=== PATIENT | male | born 1955 | race Caucasian/White ===

== ENCOUNTER 2025-09-09 12:31 | HOS | payer OTHER, MEDICARE, SELFPAY ==
--- OUTSIDE RECORDS SUMMARY | 2021-12-07 07:55 | XMS_ITS | Continuity of Care Document ---
Author Organization [facility] Address [address] [place] [address] Phone Care Team Providers Care Mover Name Role Phone House FIREARMS INSPECTOR Mikayla ELLINGTON Unavailable Unavail able Allergies, Adverse Reactions, Alerts Substance Reaction Status Criticality No Known Allergies Active No Inform ation Medications Medication Instructions Dosage Effective Dates (start - stop) Status Comments meloxicam 7.5 mg tablet take 2 tablet by oral route every day 15 MG - Active duloxetine 20 mg capsule,delayed release take 1 capsule by oral route 2 times every day 20 MG - Active losartan 50 mg tablet take 1 tablet by oral route every day 50 MG - Active tamsulosin 0.4 mg capsule take 1 capsule by oral route every day 1/2 hour following the same meal each day 0.4 MG - Active Zyrtec 10 mg capsule - Active aspirin 81 mg chewable tablet chew 1 tablet by oral route every day 81 MG - Active Tylenol 325 mg capsule - Active Irospan 24/6 65 mg-65 mg-1,000 mcg (24) tablet - Active Centrum 18 mg-400 mcg tablet take 1 tablet by oral route every day with food 1.00 tablet - Active oxybutynin chloride 5 mg tablet take 1 tablet by oral route 2 times every day 5 MG - Active terbinafine HCl 250 mg tablet take 1 tablet by oral route every day 250 MG - Active fluticasone propionate (bulk) 100 % powder - Active Procedures Procedure Date Kenalog Triamcinolone acetonide inj Asp/Injection, Major Joint W/ Ultrasound Office/outpatient visit,[facility] 2021 Advance Directives Directive Yes / No Effective Date File Name No Information Encounters Encounter Description Practice Location Reason(s) For Visit Diagnoses Date Provider Providers Copied on Encounter Office/outpat ient visit,delbert, angie [facility], [address], [place], [place], [id number], [phone] [facility] left knee pain (chief complaint) Unilateral primary osteoarthri tis, left knee 2 House RAKEL Mikayla . [address], [address], [place], [place], [id number] , [place]. tel:[phone] Referring Provider: Mikayla Jimenez, [address], [place], [address] . tel:[phone] Family History Family Member Type Diagnosis Age At Onset Problem Family history of HEART TROU BLES Problem Family history of hypertensi on Payers Payer name Insurance type Covered alliance party ID Authorhandya patricia(s) [facility] [id number] Social History Type Description Quantity Date Captured Comments Alcohol Use Details Unknown Caffeine Use Details Unknown Tobacco Use Status No Information Smoking Status No Information Sex Male Vital Signs Date / Time: Height Weight BMI Pulse Rate Blood Pressure Temperature Respiratory Rate Body Surface Area Head Circumference Head Circ. Percentile Wt./Ron. Percentile BMI percentile Pulse Ox Inhaled Ox 12:56 PM 70.00 in 149.685 kg (330.00 lbs) 47.3 5 kg/m eter (2) 2.72 meter(2) Chief Complaint And Reason For Visit From encounter dated '12/07/2021 12:55'. left knee pain (chief complaint). Description: Mr Ku is a 66 year old male who complains of left knee pain. He presents with pain on the left side. He states that the symptoms have been chronic non-traumatic. The symptoms occur constantly with intermittent worsening. The problem is worse. Currently the patient states that the symptoms are moderate-severe. The pain is described as aching, sharp and throbbing. The symptoms occur with activity. He also reports additional pain in the medial aspect on the right side. He rates his current pain as 8/10. The pain does not radiate. The symptoms are aggravated by descending stairs, squatting, standing, walking and ascending stairs. Gagandeep states that the symptoms are relieved by elevation, ice, OTC medicines and rest. In addition to left knee pain the patient is also experiencing limping, clicking, crunching, decreased mobility, difficulty bending, tenderness and stiffness. Pertinent negatives include chills, erythema, fever, instability, lo cking and tingling. The patient has had a previous x-ray. Prior NSAIDs include unspecified NSAIDS. He has had no previous treatment. Patient has not had any pertinent therapy for this condition. Patient has had no prior surgeries. There were previous episodes. Reason For Referral Reason For Referral No Information History Of Present Illness Encounter Date Complaint History Of Prese nt Illness left knee pain Mr Ku is a 6 6 year old male who complains of left knee pain. He presents with pain on the left side. He states that the symptoms have been chronic non-traumatic. The symptoms occur constantly with intermittent worsening. The problem is worse. Currently the patient states that the symptoms are moderate-severe. The pain is described as aching, sharp and throbbing. The symptoms occur with activity. He also reports additional pain in the medial aspect on the right side. He rates his current pain as 8/10. The pain does not radiate. The symptoms are aggravated by descending stairs, squatting, standing, walking and ascending stairs. Gagandeep states that the symptoms are relieved by elevation, ice, OTC medicines and rest. In addition to left knee pain the patient is also experiencing limping, clicking, crunching, decreased mobility, difficulty bending, tenderness and stiffness. Pertinent negatives include chills, erythema, fever, instability, locking and tingling. The patient has had a previous x-ray. Prior NSAIDs include unspecified NSAIDS. He has had no previous treatment. Patient has not had any pertinent therapy for this condition. Patient has had no prior surgeries. There were previous episodes. Functional Status Date Functional Assessmen t No Information Instructions Date Instruction Additional Shawnr zoey After discussing the risks and benefits of an injection the patient would like to proceed with an injection into the involved knee today. We will also institute efforts on weight control/loss. They were given instruction on icing and activity modifications. A prescription was given for physical therapy. They were given a instructions on use of an oral NSAID/Tylenol with PCP approval. We discussed possible need for total (or partial if a candidate) knee replacement in the future if non-surgical treatment fails and the patient meets medical and rehabilitation criteria. We discussed replacement would need to be delayed at least 3 months after any injection due to infection risks. Further details of surgical intervention will be discussed if non-operative treatment fails to adequately control symptoms. The patient will follow up on an as needed basis. Questions answered, verbalized understanding. Related to Unilateral primary osteoarthritis, left knee Assessments Type Assessment Date assessment Unilateral primary osteoarthriti s, left knee impression We discussed the pat hophysiology and treatment options of osteoarthritis of the knee. We discussed initial nonsurgical treatments including icing, NSAIDs/Tylenol as able/needed, ROM and strengthening exercises with or without physical therapy, activity modifications, and weight control. We discussed the role of injections as well, including cortisone, viscosupplementation, and biologics such as PRP. We discussed in detail the indications and role of surgical intervention including partial and total knee arthroplasty as appropriate. After discussing in detail all options and reviewing prior treatments, the patient and I have elected to proceed with the following plan. Mental Status Date Cognitive Assessment Orientation - [place] ed to time, place, person, situation.Normal Orientation Patient Care Teams Name Effective Dates (start - stop) Status Members No Information
--- OUTSIDE RECORDS SUMMARY | 2021-12-07 07:55 | XMS_ITS | Continuity of Care Document ---
Author Organization [facility] Address [address] [place] [address] Phone Care Team Providers Care Development Technician Name Role Phone House BRUSH WASHER Mikayla ELLINGTON Unavailable Unavail able Allergies, Adverse [...] inj Asp/Injection, Major Joint W/ Ultrasound Office/outpatient visit,[facility] 2021 Advance Directives Directive Yes / No Effective Date File Name No Information Encounters Encounter Description Practice Location Reason(s) For Visit Diagnoses Date Provider Providers Copied on Encounter Office/outpat ient visit,delbert, angie [facility], [address], [place], [place], [id number], [phone] [facility] Professional [facility] left knee pain (chief complaint) Unilateral primary osteoarthri tis, left knee 2 House RAKEL Mikayla . [address], [address], [place], [place], [address] , [place]. tel:[phone] Referring Provider: Mikayla Jimenez, [address], [place], [address] . tel:[phone] Family History Family Member Type Diagnosis Age At Onset Problem Family history of HEART TROU BLES Problem Family history of hypertensi on Payers Payer name Insurance type Covered libertarian ID Authorhandya patricia(s) [facility] [id number] Social History Type Description Quantity Date Captured [...] Mental Status Date Cognitive Assessment Orientation - [place] ed to time, place, person, situation.Normal Orientation Patient Care Teams Name Effective Dates (start - stop) Status Members No Information
[2025-09-09 12:35] VITALS: BP 136/72; PULSE 87; RESP 22; TEMP 36.7; O2SAT 97
--- OUTSIDE RECORDS SUMMARY | 2025-09-09 14:15 | XMS_ITS | Encounter Summary ---
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 Gender Identity Not on file Sexual Orientation Not on file documented as of this encounter Plan of Treatment Not on file documented as of this encounter Procedures Procedure Name Priority Date/Time Associated Diagnosis Comments CBC W AUTO DIFFERENTIAL STAT 03/08/2025 3:35 PM CDT BASIC METABOLIC PANEL (CALCIUM TOTAL) STAT 03/08/2025 3:35 PM CDT documented in this encounter Results * (ABNORMAL) CBC WITH DIFFERENTIAL (03/08/2025 3:35 PM CDT) WBC 11.5(H) 4.0 - 10.7 x10E9/L 03/08/2025 7:04 PM CDT [facility] RBC Count 3.31(L) 4.30 - 5.80 x10E12/L 03/08/2025 7:04 PM CDT [facility] Hemoglobin 9.8(L) 13.3 - 17.5 g/dL 03/08/2025 7:04 PM CDT [facility] Hematocrit 32.1(L) 38.7 - 51.1 % 03/08/2025 7:04 PM CDT [facility] MCV 97.0 80.0 - 98.0 fL 03/08/2025 7:04 PM [facility] MCH 29.6 26.7 - 33.6 pg 03/08/2025 7:04 PM [facility] MCHC 30.5(L) 31.7 - 36.3 g/dL 03/08/2025 7:04 PM [facility] RDW-CV 14.4 11.3 - 14.8 % 03/08/2025 7:04 PM [facility] Platelet Count 260 150 - 420 x10E9/L 03/08/2025 7:04 PM [facility] MPV 10.2 7.8 - 11.4 fL 03/08/2025 7:04 PM [facility] Neutrophil % 79.8(H) 41.0 - 74.0 % 03/08/2025 7:04 PM [facility] Lymphocyte % 7.5(L) 17.0 - 47.0 % 03/08/2025 7:04 PM [facility] Monocyte % 6.0 3.0 - 11.0 % 03/08/2025 7:04 PM [facility] Eosinophil % 2.0 0.0 - 7.0 % 03/08/2025 7:04 PM [facility] Basophil % 0.4 0.0 - 1.6 % 03/08/2025 7:04 PM [facility] Immature Granulocytes % 4.3(H) 0.0 - 1.0 % 03/08/2025 7:04 PM [facility] Neutrophil Absolute 9.18(H) 1.60 - 7.50 x10E9/L 03/08/2025 7:04 PM [facility] Lymphocyte Absolute 0.86(L) 1.00 - 4.40 x10E9/L 03/08/2025 7:04 PM [facility] Monocyte Absolute 0.69 0.15 - 1.00 x10E9/L 03/08/2025 7:04 PM [facility] Eosinophil Absolute 0.23 0.00 - 0.60 x10E9/L 03/08/2025 7:04 PM [facility] Basophil Absolute 0.05 0.00 - 0.13 x10E9/L 03/08/2025 7:04 PM CDT [facility] Blood BLOOD SPECIMEN / Unknown Venipuncture / Unknown 03/08/2025 3:35 PM CDT 03/08/2025 6:57 PM CDT us Provider Unknown LAB - HEMATOLOGY ORDERABLES Fin al Result Performing Organization Address City/State/[facility] Co de Phone Number [facility] [address] [place], [place] [id number] * (ABNORMAL) BASIC METABOLIC PANEL (CALCIUM TOTAL) (03/08/2025 3:35 PM CDT) Glucose 111(H) 70 - 99 mg/dL 03/08/2025 7:15 PM CDT [facility] Sodium 138 136 - 145 mmol/L 03/08/2025 7:15 PM CDT [facility] Potassium 4.2 3.5 - 5.1 mmol/L 03/08/2025 7:15 PM CDT [facility] Chloride 108(H) 98 - 107 mmol/L 03/08/2025 7:15 PM CDT [facility] CO2 20(L) 22 - 29 mmol/L 03/08/2025 7:15 PM CDT [facility] Calcium 8.8 8.4 - 10.4 mg/dL 03/08/2025 7:15 PM CDT [facility] Anion Gap 10 6 - 16 mmol/L 03/08/2025 7:15 PM CDT [facility] BUN 35(H) 7 - 26 mg/dL 03/08/2025 7:15 PM CDT [facility] Creatinine 2.41(H) 0.72 - 1.25 mg/dL 03/08/2025 7:15 PM CDT [facility] eGFR by CKD-EPI 28(L) >=90 mL/min/1.7 3 m2 03/08/2025 7:15 PM CDT [facility] Blood BLOOD SPECIMEN / Unknown Venipuncture / Unknown 03/08/2025 3:35 PM CDT 03/08/2025 6:57 PM CDT us Provider Unknown LAB - CHEMISTRY ORDERABLES Leisa l Result [facility] [address] [place] [address] documented in this encounter Visit Diagnoses Not on filedocumented in this encounter
--- OUTSIDE RECORDS SUMMARY | 2025-09-09 14:15 | XMS_ITS | Clinical Summary ---
Author Organization [facility] Address [address] [place] [address] Care Team Providers Care Dedicated Regional Driver Name Role Phone Unavailable Primary Care Provider Unavailabl e Source Comments [facility],non-owned Affiliates and Associated Physician Practices is amultiple site organization consisting of ambulatory clinics and hospital sitesin [place], [place], [place] and [place]. This disclosure is being madepursuant to the Care Everywhere program and may not contain all information available regarding this patient. 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 Gender Identity Not on file Sexual Orientation Not on file Plan of Treatment Health Maintenance Due Date Last Done Comments COLOGUARD (AGES 45-75) - COL ON CA SCREENING 1955 COLON MONITORING 1955 COLONOSCOPY - COLON CA SCREENING 1955 CT COLONOGRAPHY - COLON CA SCREENING 1955 Colorectal Cancer Screening 1955 FIT - COLON CA SCREENING 1955 FLEX SIG - COLON CA SCREENING 1955 LIPID TESTING 1955 MEDICARE AWV 12 MONTHS 1955 HEPATITIS C SCREENING 05/16/1973 DTAP/TDAP/TD VACCINES (1 - Tdap) 1974 PNEUMOCOCCAL VACCINE 50+ (1 of 1 - PCV) 2005 ZOSTER VACCINE (1 of 2) 2005 DEPRESSION SCREENING 11/13/2024 COVID-19 VACCINE ( - 2023-2 5 season) 2025 INFLUENZA VACCINE (#1) 2025 Respiratory Syncytial Virus (RSV) Vaccine Pt: or over 60 yrs (1 - 1-dose 75+ series) 2030 HEPATITIS B VACCINE Aged Out No longe r eligible based on patient's age to complete this topic HIB VACCINE Aged Out No longer eligi ble based on patient's age to complete this topic HPV VACCINE Aged Out No longer eligi ble based on patient's age to complete this topic MENINGOCOCCAL (Group B) VACC INE SHARED DECISION-MAKING Aged Out No longer eligibl e based on patient's age to complete this topic MENINGOCOCCAL GROUPS A/C/Y/W VACCINE Aged Out No longer eligible b ased on patient's age to complete this topic Insurance MEDICARE [facility] Care Address: [facility] [address] [place] [address]
--- OUTSIDE RECORDS SUMMARY | 2025-09-09 14:15 | XMS_ITS | Clinical Summary ---
Author Organization [facility] Address [address] [place] [address] Care Team Providers Care Vineyard Supervisor Name Role Phone Unavailable Primary Care Provider Unavailabl e Social History Tobacco Use Types Packs/Day Years Used Date Smoking Tobacco: Never Assessed Sex and Gender Information Value Date Recorded Sex Assigned at Not on file Legal Sex Male 5:45 PM CDT Gender Identity Not on file Sexual Orientation Not on file Plan of Treatment Health Maintenance Due Date Last Done Comments Colorectal Cancer Screening Colonoscopy (10 Years) 1955 Hepatitis C 1973 DTaP, Tdap and Td Vaccines ( 1 - Tdap) 1974 Pneumococcal Vaccine: 50+ Ye ars (1 of 1 - PCV) 2005 Zoster Vaccines (1 of 2) 2005 COVID-19 Vaccine (1 - 2024-2 6 season) 2025 Influenza Adult (#1) 2025 RSV Immunization or 60+ Years (1 - 1-dose 75+ series) 2030 Hepatitis A Vaccines Aged Out No long er eligible based on patient's age to complete this topic Meningococcal B Vaccine Aged Out No l onger eligible based on patient's age to complete this topic Meningococcal Vaccine Aged Out No pebbles airam eligible based on patient's age to complete this topic RSV Immunizations Under 20 Months Aged Out No longer eligible based on patient's age to complete this topic
--- OUTSIDE RECORDS SUMMARY | 2025-09-09 14:16 | XMS_ITS | Clinical Summary ---
Author Organization [facility] Address [address] [place] [address] Care Team Providers Care Logistics Lead Name Role Phone Bonnie Yeh MD Primary Care Provider + Allergies No known active allergies Medications carbidopa-levodopa (SINEMET) 25-100 mg per tablet TAKE TWO TABLETS BY MOUTH EVERY 4 HOURS (FOUR TIMES A DAY) 720 tablet 3 11/20/19 20 Active terbinafine (LamiSIL) 250 mg tablet Take 1 tablet by mouth daily Active tamsulosin (FLOMAX) 0.4 mg extended release capsule Take 1 capsule by mouth daily 07/21/20 20 Active rOPINIRole (REQUIP) 1 mg tablet Take 1 tablet by mouth 3 (three) times a day 11/30/19 23 Active oxybutynin XL (DITROPAN-XL) 10 mg 24 hr tablet Take 10 mg by mouth daily 12/03/19 23 Active qhcukthafifk-poiw-jp lic acid (Centrum) 18-400 mg-mcg tablet Take 1 tablet by mouth daily Active multivitamin tablet Take 1 tablet by mouth daily Active Myrbetriq 50 mg tablet extended release 24 hr Take 50 mg by mouth daily 12/02/19 23 Active metFORMIN (GLUCOPHAGE) 500 mg tablet Take 500 mg by mouth daily with breakfast 10/17/20 22 Active meloxicam (MOBIC) 15 mg tablet Take 15 mg by mouth daily Active losartan (COZAAR) 100 mg tablet Take 1 tablet by mouth daily 06/20/20 22 Active gabapentin (NEURONTIN) 300 mg capsule Take 300 mg by mouth 3 (three) times a day 12/18/19 23 Active fenofibrate nanocrystallized (TRICOR) 145 mg tablet Take 145 mg by mouth daily 03/21/20 22 Active aspirin 81 mg chewable tablet Take 1 tablet by mouth daily Active Active Problems Problem Noted Date Diagnosed Date Reflex neurogenic bladder 11/24/2022 Overview (11/24/2022): Added automatically from request for surgery [id number] Surgical History Surgery Date Site/Laterality Comments CHOLECYSTECTOMY TOTAL KNEE ARTHROPLASTY Right TONSILLECTOMY Medical History Medical History Date Comments Sleep apnea Parkinson disease (HCC) Social History Tobacco Use Types Packs/Day Years Used Date Smoking Tobacco: Never Tobacco Cessation:Counseling Given: Not Answered AUDIT-C Answer Date Recorded Q1: How often do you have a drink containing alcohol? Never 12/27/2022 Q2: How many drinks containi ng alcohol do you have on a typical day when you are drinking? Patient does not drink Q3: How often do you have si x or more drinks on one occasion? 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 Gender Identity Not on file Sexual Orientation Not on file Obstetrics History Last Filed Vital Signs Vital Sign Reading Time Taken Comments Blood Pressure 123/60 12/27/2022 9:35 AM RESEARCH PROGRAMMER Pulse 64 12/27/2022 9:35 AM RESEARCH PROGRAMMER Temperature 36.4 C (97.5 F) 12/27/2022 9:02 AM RESEARCH PROGRAMMER Respiratory Rate 25 12/27/2022 9:3 5 AM RESEARCH PROGRAMMER Oxygen Saturation 94% 12/27/2022 9:35 AM RESEARCH PROGRAMMER Inhaled Oxygen Concentration - - Weight 144.6 kg (318 lb 12.6 oz) 12/27/2022 6:58 AM RESEARCH PROGRAMMER Height 177.8 cm (5' 10) 12/27/2022 6:58 AM RESEARCH PROGRAMMER Body Mass Index 45.74 12/27/2022 6:58 AM RESEARCH PROGRAMMER Plan of Treatment Health Maintenance Due Date Last Done Comments Colon Cancer Screening-Colonoscopy 1955 Depression Screening 1955 Hepatitis C Screening 1955 DTaP/Tdap/Td Vaccine (1 - Tdap) 1966 Hepatitis B Screening 1973 Abdominal Aortic Aneurysm (A AA) Screen 2020 Well Visit 65+ 2020 Fall Risk Assessment 12/27/2023 12/27/2022 Covid-19 Vaccine ( season) 2025 09/09/2021, 01/22/2021, 01/01/2021 Influenza Vaccine (#1) 2025 , 08/13/2020, 09/03/2019 Zoster Vaccine Completed 12/10/2019, 09/03/2019 Pneumococcal vaccine 65+ Completed 10/01/2020, 08/14 Insurance [facility] Care Teams Logistics Lead Relationship Specialty Start Date End Date Bonnie Yeh MD [address] [place] [address] PCP - General Pediatrics 12/26/22
--- OUTSIDE RECORDS SUMMARY | 2025-09-09 14:16 | XMS_ITS | Clinical Summary ---
Author Organization [employer] [facility] Address [address] [place] [address] Care Team Providers Care Mastic Sprayer Name Role Phone Bonnie Yeh MD Primary Care Provider [phone] Allergies Active Allergy Reactions Criticality Noted Date Comments Llpxocw-Smb-Lvc Reductase Inhibitors Muscle Pain Low 12/11/2019 Medications cetirizine (ZyrTEC) 10 mg tablet Take 10 mg by mouth daily. Active aspirin (ECOTRIN EC) 81 mg Tablet, Delayed Release (E.C.) Take 81 mg by mouth daily. Active multivitamin (DAILY-JANNETTE) tablet Take 1 Tablet by mouth daily. Active fluticasone propionate (FLONASE) 50 mcg/spray [place], Suspension nasal inhaler SPRAY 2 SPRAYS INTO EACH NOSTRIL EVERY DAY FOR 30 DAYS 3 Active tamsulosin (FLOMAX) 0.4 mg capsule Take 0.4 mg by mouth daily. 3 Active gabapentin (NEURONTIN) 300 mg capsuleIndications:T ype 2 diabetes mellitus with diabetic polyneuropathy, without long-term current use of insulin take 1 capsule by mouth three times a day 270 Capsule 3 4 Active fenofibrate nanocrystallized (TRICOR) 145 mg tabletIndications:Mi xed hyperlipidemia TAKE 1 TABLET BY MOUTH EVERY DAY 100 Tablet 3 5 Active miconazole nitrate (REMEDY-AF,ZEASORB-A F) 2 % Powder Apply to affected area 2 times daily. 100 Gram 5 Active polyethylene glycol (MIRALAX) 17 gram Powder in Packet Take 1 Packet (17 Grams) by mouth 1 time daily as needed for Constipation . 14 Each 5 Active amLODIPine (NORVASC) 5 mg tabletIndications:HT N (hypertension), benign Take 1 Tablet (5 mg) by mouth daily. 90 Tablet 3 5 Active buPROPion HCL (WELLBUTRIN XL) 150 mg Extended Release 24 hour tabletIndications:Mo derate episode of recurrent major depressive disorder (CMS/HCC) TAKE 1 TABLET BY MOUTH EVERY DAY IN THE MORNING 100 Tablet 3 5 Active DULoxetine (CYMBALTA) 60 mg Capsule, Delayed Release(E.C.) TAKE 1 CAPSULE BY MOUTH 2 TIMES DAILY. 200 Capsule 3 5 Active losartan (COZAAR) 100 mg tabletIndications:HT N (hypertension), benign,Type 2 diabetes mellitus with diabetic polyneuropathy, without long-term current use of insulin TAKE 1 TABLET BY MOUTH EVERY DAY 100 Tablet 3 5 Active sulfamethoxazole-tri methoprim (BACTRIM DS) 800-160 mg tabletIndications:Ur inary tract infection with hematuria, site unspecified Take 1 Tablet by mouth 2 times daily. 20 Tablet 5 Active carbidopa-levodopa (SINEMET) 25-100 mg tablet Take 1 Tablet by mouth 3 times daily. 30 Tablet 5 Active HYDROcodone-acetamin ophen (NORCO) 5-325 mg tabletIndications:Ch ronic pain of left knee Take 1 Tablet by mouth every 8 hours as needed for Pain, Severe. Max Daily Amount: 3 Tablets 12 Tablet 5 Active metFORMIN (GLUCOPHAGE XR) 500 mg Extended Release 24 hour tablet Take 1 Tablet (500 mg) by mouth daily with breakfast. 100 Tablet 3 5 Active diclofenac sodium (VOLTAREN) 75 mg Tablet, Delayed Release (E.C.) TAKE 1 TABLET BY MOUTH TWICE A DAY 60 Tablet 3 5 Active mirtazapine (REMERON SolTab) 30 mg Tablet, Rapid DissolveIndications: Insomnia due to medical condition Place 1 Tablet (30 mg) inside cheek daily at bedtime. 100 Tablet 3 5 Active diazePAM (VALIUM) 2 mg tabletIndications:Mu scle spasm TAKE 1 TABLET (2 MG) BY MOUTH NIGHTLY NEEDED FOR ANXIETY. 30 Tablet 5 Active Active Problems Problem Noted Date Diagnosed Date Uses walker 04/09/2025 Atherosclerosis of aorta 10/12/2023 Frail elderly 07/13/2023 Autonomic dysfunction 07/13/2023 Reflex neurogenic bladder 11/24/2022 Overview (07/13/2023): Reflex neurogenic bladder Reflex neurogenic bladder [id number] Active 2022-11-24 00:00:00 Overview: Added automatically from request for surgery [id number] Added automatically from request for surgery [id number] Restless leg syndrome 02/16/2022 Statin myopathy 10/01/2020 Mixed hyperlipidemia 06/25/2020 Family history of atherosclerosis 09/04/2019 Type 2 diabetes mellitus wit h diabetic polyneuropathy, without long-term current use of insulin 09/03/2019 Recurrent major depressive disorder, in partial remission 06/25/2019 Chronic pain of left knee 06/25/2019 Morbid obesity with BMI of 40.0-44.9, adult 04/14 Parkinson's disease 05/07/2019 Peripheral polyneuropathy 05/07/2019 HTN (hypertension), benign 05/07/2019 Benign prostatic hyperplasia 05/07/2019 NERY treated with BiPAP 05/07/2019 Resolved Problems Problem Noted Date Diagnosed Date Resolved Date Urinary retention 02/18/2025 06/16/2025 Acute metabolic encephalopathy 02/15/2025 02/20/2025 AMS (altered mental status) 02/14/2025 02/20/2025 Abdominal distention 02/14/2025 025 Dysphagia 02/14/2025 02/20/2025 Probable sepsis 02/14/2025 05/13/2025 Hypernatremia 02/14/2025 02/20/2025 Cog-wheel rigidity 02/14/2025 Dehydration, moderate 02/14/20252024 Lactic acidosis 02/14/2025 02/20/2025 Esophageal dysphagia 07/13/2023 025 Other chest pain 09/04/2019 05/11/2022 Achilles rupture, right 06/25/201904/14 Urinary incontinence 05/07/2019 022 Callus of foot 05/07/2019 05/13/2025 Onychomycosis of toenail 05/07/201911/2024 Claudication of left lower extremity 05/07/2019 03/17/2020 Localized edema 05/07/2019 05/13/2025 Chronic fatigue 05/07/2019 05/13/2025 Encounters Date Type Department Care Team Description 08/19/2025 External Device Data STL ABSTRACTION Provider, Abstract 07/17/2025 Telephone [facility] [id number] [place] [address] [address] [place] [address] Jeffery Sevilla MD insurance clarification- gel injection 07/15/2025 External Device Data STL ABSTRACTION Provider, Abstract 07/11/2025 Patient Outreach [facility] Outpatient Care [facility] [address] [place] [address] Rama Dumont, INTERACTIVE MEDIA MARKETING SPECIALIST Ambulatory Social Work 07/09/2025 Patient Outreach [facility] Outpatient Care [facility] [address], [place] [address] Rama Dumont, INTERACTIVE MEDIA MARKETING SPECIALIST Ambulatory Social Work 06/30/2025 11:15 AM CDT Office Visit [facility] [address] [facility] [address] [place] [address] Jeffery Sevilla MD Arthritis of left knee (Primary Dx) 06/30/2025 Chart Note [facility] [address] [facility] [address] [place] [address] Jeffery Sevilla MD 06/26/2025 Telephone [facility] [address] [place] [address] Bonnie Yeh MD Provider Call 06/24/2025 Refill [facility] [address] [place] [address] Bonnie Yeh MD 06/23/2025 Telephone [facility] [address] [place] [address] Bonnie Yeh MD Medication Refill 06/20/2025 [facility] [address] [place] [address] Bonnie Yeh MD Medication Assistance 06/20/2025 [facility] [address] [place] [address] Bonnie Yeh MD Needs Orders Written 06/20/2025 [facility] [address] [place] [address] Bonnie Yeh MD Medication Review 06/19/2025 Patient Outreach [facility] Outpatient [facility] [place] [address] [place] [address] Rama Dumont, [facility] Ambulatory Social Work 06/19/2025 [facility] [place] [address] [place] [address] Merced Bhat, Referral 06/19/2025 Refill [facility] [address] [place] [address] Edyta Roque MD Muscle spasm 06/18/2025 [facility] [address] [place] [address] Bonnie Yeh MD Needs Orders Written 06/17/2025 External Device Data STL ABSTRACTION Provider, Abstract 06/16/2025 9:00 AM CDT Office Visit [facility] [address] [place] [address] Bonnie Yeh MD Urine discoloration (Primary Dx); Type 2 diabetes mellitus with diabetic polyneuropathy, without long-term current use of insulin ([facility]); Frail elderly; Stasis dermatitis of both legs; Localized swelling of both lower extremities; Morbid obesity with BMI of 40.0-44.9, adult ([facility]); Parkinson's disease with dyskinesia and fluctuating manifestations ([facility]); Insomnia due to medical condition; Hallucinations, unspecified; Arthritis of knee, left; Uses walker 06/16/2025 Results Follow-Up [facility] [address] [place] [address] So Devine NP POC URINALYSIS DIPSTICK AUTOMATED 06/12/2025 Telephone [facility] [address] [place] [address] Bonnie Yeh MD Patient Communication 06/11/2025 1:19 PM CDT - 06/11/2025 11:59 PM CDT Hospital Encounter [facility] Diagnostic Vascular Services [address] [place] [address] Bonnie Yeh MD Discharge Disposition: Home or Self Care from Last 3 Months Immunizations Immunization Administration Dates Next Due (ADACEL/BOOSTRIX)(10 YR UP) TDAP VACCINE, 0.5ML, IM 10/12/2023 (PFIZER)(12 YR UP) COVID-19 VACCINE - EMERGENCY USE AUTHORIZATION, MRNA, [id number](PF) 30 MCG/0.3 ML IM SUSP 09/09/2021,01/22/2021,01/01/2021 (PNEUMOVAX 23)(50 YRS UP) PN EUMOCOCCAL POLYSACCHARIDE (PPV23) 0.5 ML, IM 10/01/2020 (PREVNAR 13)(6 WKS UP) PNEUM OCOCCAL CONJUGATE (PCV13) 0.5 ML, IM 09/03/2019 (PREVNAR 20)(6 WKS UP) PNEUM OCOCCAL CONJUGATE VACCINE 20-VALENT (PCV20), POLYSACCHARIDE [id number] CONJUGATE, ADJUVANT 0.5 ML (PF) IM 10/11/2022 (SHINGRIX)(50 YRS UP) ZOSTER VACCINE RECOMBINANT, 0.5 ML, IM 12/10/2019,09/03/2019 INFLUENZA VACCINE HIGH DOSE QUADRIVALENT 65 YR UP PF IM 10/12/2023,10/11/2022,10/21/2021,08/13 INFLUENZA VACCINE HIGH DOSE TRIVALENT SPLIT VIRUS, (65 YR UP), 0.5ML (PF), IM 09/26/2024 INFLUENZA VACCINE QUADRIVALE NT 6 MOS UP IM 09/03/2019 Influenza Seasonal Unspecifi ed Formulation IM 08/13/2020 Family History Medical History Relation Name Comments Heart Failure Father Alzheimer's Disease Mother Buffy Ku Heart Failure Mother Buffy Ku Relation Name Status Comments Father Mother Buffy Ku Social History Tobacco Use Types Packs/Day Years Used Date Smoking Tobacco: Former Cigarettes Q uit: 06/04/1978 Passive Smoke Exposure: Never Smokeless Tobacco: Never Tobacco Cessation:Counseling Given: No Alcohol Use Standard Drinks/Week Comments Never 0 (1 standard drink = 0.6 oz pur e alcohol) quit 1995 Financial Resource Strain Answer Date R ecorded How hard is it for you to pa y for the very basics like food, housing, medical care, and heating? Not very hard 10/11/2022 Food Insecurity Answer Date Recorded In the past 12 months, have you worried that your food would run out before you had money to buy more? Never true 10/11/2022 In the past 12 months, did y ou run out of food and didn't have money to buy more? Never true 10/11/2022 Transportation Needs Answer Date Record ed In the past 12 months, has l ack of transportation kept you from medical appointments or from getting medications? No 10/11/2022 Lack of Transportation (Non-Medical) Not on file 10/11/2022 Feeling Safe Answer Date Recorded Are you in a relationship wi th someone who hurts you emotionally and/or physically? No 02/14/2025 Food Insecurity Answer Date Recorded Patient needs follow up regardin 03/05/2025 Transportation Needs Answer Date Record ed Patient needs follow up regardin 03/05/2025 Housing Stability Answer Date Recorded Social/Environmental Concerns No concerns Utility Needs Answer Date Recorded Patient needs follow up regardin 03/05/2025 Sex and Gender Information Value Date Recorded Sex Assigned at Not on file Legal Sex Male 11:39 PM CDT Gender Identity Not on file Sexual Orientation Not on file Last Filed Vital Signs Vital Sign Reading Time Taken Comments Blood Pressure 132/72 06/16/2025 10:12 AM CDT Pulse 75 06/16/2025 8:59 AM CDT Temperature 36.1 C (97 F) 06/16/2025 8:59 AM CDT Respiratory Rate 18 06/16/2025 8:59 AM CDT Oxygen Saturation 98% 06/16/2025 8:59 AM CDT Inhaled Oxygen Concentration - - Weight 134.3 kg (296 lb) 06/30/2025 11:08 AM CDT Height 177.8 cm (5' 10) 06/30/2025 11:08 AM CDT Body Mass Index 42.47 06/30/2025 11:08 AM CDT Plan of Treatment Upcoming Encounters Date Type Department Care Team (Late st Contact Info) Description 10/07/2025 1:00 PM FINANCIAL QUANTITATIVE ANALYST Office Visit [facility] [address] [place] [address] Bonnie Yeh MD [address] [place] [address] 12/29/2025 10:20 AM FINANCIAL QUANTITATIVE ANALYST Office Visit [facility] [address] [place] [address] Bonnie Yeh MD [address] [place] [address] Health Maintenance Due Date Last Done Comments FIT-DNA Q 3 years 2000 FIT/FOBT Q 1 year 2000 Flex Sig/CT Colonography Q 5 years 2000 RSV VACCINE (60+ or ) (1 - Risk 50-74 years 1-dose series) 2005 Abdominal Aortic Aneurysm (A AA) Screening 2020 DIABETES ANNUAL RETINAL EXAM 05/11/2023, 07/15/2021, 06/25/2020 KHE uA (Auto Order) 11/13/2024 01/15/2024 , 04/12/2023, 10/11/2022, Additional history exists DIABETES MICROALBUMIN ANNUAL SCREEN 01/14/2025 01/15/2024, 04/12/2023, 10/11/2022, Additional history exists INFLUENZA VACCINE (#1) 2025 , 10/12/2023, 10/11/2022, Additional history exists COVID-19 Vaccine ( - 2024-2 6 season) 2025 09/09/2021, 01/22/2021, 01/01/2021 DIABETES HBA1C Q 6 MONTHS 09/10/20252024, 09/26/2024, 06/20/2024, Additional history exists DIABETES ANNUAL FOOT EXAM 09/26/20252023, 04/12/2023, 04/01/2021, Additional history exists LDL CHOLESTEROL ANNUAL 02/12/2026 , 10/02/2024, 01/15/2024, Additional history exists DIABETES: A1C (Auto Order) 03/11/202603/11, 09/26/2024, 06/20/2024, Additional history exists COLORECTAL SCREENING 04/01/2027 04/01/2024, 04/01/2024, 01/01/2016, Additional history exists Colorectal Cancer Screening 04/01/2027 DTAP/TDAP/TD VACCINES (2 - T d or Tdap) 10/12/2033 10/12/2023 ZOSTER VACCINE Completed 12/10/2019, 09/03/2019 PNEUMOCOCCAL VACCINE 50+ YEARS Completed 1 12/11/2021, 10/01/2020, 09/03/2019 Medicare Advantage ([place]) Preventative Visit/Annual Wellness Visit Completed 05/13/2025, 01/15/2024, 01/15/2024, Additional history exists KHE eGFR (Auto Order) Completed 06/05/2025 , 03/11/2025, 02/18/2025, Additional history exists Medical Devices Implanted Type Area P D Driver Device Identifier Shelf Expiration Date Model / Serial / Lot Clip Ti Med/Lg 3200 - Csc - [id number] Implanted:Qty: 2 on 08/16/2022 by Cj Gambino MD at [facility] Clip N/A: Abdomen TELEFLEX- WECK CLOSURE SYS 05/16/2027 [id number] / / [id number] Clip Endo Resolution 360 Ultra 2.8mm 235cm [id number] - [id number] Implanted:Qty: 4 on 04/01/2024 by Prashanth Tan MD at [facility] N/A: [employer] DILIA [id number] 12/08/2026 [id number] / / [id number] Procedures Procedure Name Priority Date/Time Associated Diagnosis Comments POC URINALYSIS DIPSTICK AUTOMATED Routine 06/16/2025 9:07 AM CDT Urine discoloration US VENOUS DOPPLER LEG BILATERAL Routine 06/11/2025 2:05 PM CDT Leg swelling BASIC METABOLIC PANEL Routine 06/05/2025 1:07 PM CDT Leg swelling HEMOGLOBIN A1C Routine 03/11/2025 10:17 AM CDT LIPID PANEL Routine 02/12/2025 12:41 PM CDT Mixed hyperlipidemia COLONOSCOPY REPORT 04/01/2024 2: 10 PM CDT MICROALBUMIN/CREATI NINE RATIO, RANDOM UR Routine 01/15/2024 3:12 PM FINANCIAL QUANTITATIVE ANALYST Type 2 diabetes mellitus with diabetic polyneuropathy, without long-term current use of insulin ([facility]) from Last 3 Months or Most Recently Relevant to Health Maintenance Results * (ABNORMAL) POC URINALYSIS DIPSTICK AUTOMATED (06/16/2025 9:07 AM CDT) COLOR UA POC Dark Yellow Pale to Dark Yellow [facility] CLARITY UA POC Cloudy(A) Clear, Other [facility] GLUCOSE UA POC Negative Negative, Normal [facility] BILIRUBIN UA POC Negative Negative [facility] KETONES UA POC Negative Negative [facility] SPECIFIC GRAVITY UA POC 1.020 1.000 - 1.030 [facility] BLOOD UA POC Negative Negative [facility] PH UA POC 6.0 5.0 - 8.0 [facility] PROTEIN UA POC Negative Negative [facility] UROBILINOGEN UA POC 1.0 <2.0 mg/dL [facility] NITRITE UA POC Negative Negative [facility] LEUKOCYTE ESTERASE UA POC Negative Negative [facility] KIT LOT NUMBER POC [id number] [facility] KIT EXP DATE POC [id number] [facility] Urine 06/16/2025 9:07 AM CDT Bonnie Yeh MD POINT OF CARE TESTING Final Resu lt [facility] CLIA# [id number] [address] [place] [address] * US VENOUS DOPPLER LEG BILATERAL (06/11/2025 2:05 PM CDT) Anatomical Region Laterality Modality Lower Extremity Ultrasound 06/11/2025 1:28 PM CDT Narrative 06/11/2025 5:10 PM CDT [place] [address] [place] [address] [email or web address] Venous Exam Complete Lower Extremity Duplex Patient: Gagandeep Ku Study ID: [id number] Gender: M : 1955 Age: 70 Race: CAU Height Study Date: 06/11/2025 Weight: Access. #: [id number] *Referring Physician:* Bonnie Yeh Nancy P *Ordering Physician:* Bonnie Yeh *Copy Technician:* Olive Guillaume History: Swelling of both lower extremities. No previous DVT. PMH: No prior study is available for comparison. Study data: New node Study status: Routine. Complete lower extremity venous duplex evaluation. Doppler flow study including spectral analysis, color and umana scale imaging. Birthdate: Patient birthdate: 1955. Age: Patient is 70year(s) old. Sex: gender: male. Study date: Study date: 06/11/2025. Study time: 01:28 PM. Location: Vascular laboratory. Patient status: Outpatient. Impressions 1. No evidence of deep vein thrombosis involving the visualized veins of the bilateral lower extremities. 2. Calf veins not well visualized due to edema. Isolated calf clot cannot absolutely be ruled out. Incidental findings: A Arce's cyst is noted incidentally on the left. Tables: Venous flow: + +-------+ + !Location !Overall!Flow properties ! + +-------+ + !Right common femoral - !Patent !Phasic; spontaneous; normal augmentation; ! ! ! !compressible; no reflux ! + +-------+ + !Right femoral - !Patent !Phasic; spontaneous; normal augmentation; ! ! ! !compressible; no reflux ! + +-------+ + !Right profunda femoral -!Patent !Compressible ! + +-------+ + !Right popliteal - !Patent !Phasic; spontaneous; normal augmentation; ! ! ! !compressible; no reflux ! + +-------+ + !Right posterior tibial -!Patent !Compressible ! + +-------+ + !Right peroneal - !Patent !Compressible ! + +-------+ + !Left common femoral - !Patent !Phasic; spontaneous; normal augmentation; ! ! ! !compressible; no reflux ! + +-------+ + !Left femoral - !Patent !Phasic; spontaneous; normal augmentation; ! ! ! !compressible; no reflux ! + +-------+ + !Left profunda femoral - !Patent !Compressible ! + +-------+ + !Left popliteal - !Patent !Phasic; spontaneous; normal augmentation; ! ! ! !compressible; no reflux ! + +-------+ + !Left posterior tibial - !Patent !Compressible ! + +-------+ + !Left peroneal - !Patent !Compressible ! + +-------+ + *Velocities are expressed in cm/s, Diameters are expressed in mm Prepared and Electronically Authenticated Jonh Deluca [id number]:48 Procedure Note Jonh Deluca MD - 06/11/[address] [place] [address] [email or web address] Venous Exam Complete Lower Extremity Duplex Patient: Gagandeep Ku Study ID: [id number] Gender: M : 1955 Age: 70 Race: CAU Height Study Date: 06/11/2025 Weight: Access. #: [id number] *Referring Physician:Bonnie Perea Nancy P *Ordering Physician:* Bonnie YehCopy Technician:Olive Blackwell History: Swelling of both lower extremities. No previous DVT. PMH:No prior study is available for comparison. Study data: New node Study status: Routine. Complete lowerextremity venous duplex evaluation. Doppler flow study including spectralanalysis, color and umana scale imaging. Birthdate: Patient birthdate:1955. Age: Patient is 70year(s) old. Sex: gender: male. Study date:Study date: 06/11/2025. Study time: 01:28 PM. Location: Vascular laboratory. Patient status: Outpatient. Impressions 1. No evidence of deep vein thrombosis involving the visualized veins ofthe bilateral lower extremities. 2. Calf veins not well visualized due to edema. Isolated calf clotcannot absolutely be ruled out. Incidental findings: A Arce's cyst is noted incidentally on the left. Tables: Venous flow: + +-------+ + !Location !Overall!Flow properties! + +-------+ + !Right common femoral - !Patent !Phasic; spontaneous; normalaugmentation; ! ! ! !compressible; no reflux! + +-------+ + !Right femoral - !Patent !Phasic; spontaneous; normalaugmentation; ! ! ! !compressible; no reflux! + +-------+ + !Right profunda femoral -!Patent !Compressible! + +-------+ + !Right popliteal - !Patent !Phasic; spontaneous; normalaugmentation; ! ! ! !compressible; no reflux! + +-------+ + !Right posterior tibial -!Patent !Compressible! + +-------+ + !Right peroneal - !Patent !Compressible! + +-------+ + !Left common femoral - !Patent !Phasic; spontaneous; normalaugmentation; ! ! ! !compressible; no reflux! + +-------+ + !Left femoral - !Patent !Phasic; spontaneous; normalaugmentation; ! ! ! !compressible; no reflux! + +-------+ + !Left profunda femoral - !Patent !Compressible! + +-------+ + !Left popliteal - !Patent !Phasic; spontaneous; normalaugmentation; ! ! ! !compressible; no reflux! + +-------+ + !Left posterior tibial - !Patent !Compressible! + +-------+ + !Left peroneal - !Patent !Compressible! + +-------+ + *Velocities are expressed in cm/s, Diameters are expressed in mm Prepared and Electronically Authenticated Jonh Deluca [id number]:48 Bonnie Yeh MD US ORDERABLES Final Result * (ABNORMAL) BASIC METABOLIC PANEL (06/05/2025 1:07 PM CDT) GLUCOSE 95 65 - 139 mg/dL [facility] Comment: Non-fasting reference interval BUN 32(H) 7 - 25 mg/dL [facility] CREATININE 1.51(H) 0.70 - 1.28 mg/dL [facility] GFR 49(L) > OR = 60 mL/min/1.7 3m2 [facility] BUN/CREAT RATIO 21 6 - 22 (calc) [facility] SODIUM 143 135 - 146 mmol/L [facility] POTASSIUM 4.4 3.5 - 5.3 mmol/L [facility] CHLORIDE 108 98 - 110 mmol/L [facility] CO2 24 20 - 32 mmol/L [facility] CALCIUM 10.5(H) 8.6 - 10.3 mg/dL [facility] Comment: FASTING:NO FASTING: NO Test Performed at: [facility] [address] [place] [address] Juliana Cadet MD Blood 06/05/2025 1:07 PM CDT 06/05/2025 1:08 PM CDT Bonnie Yeh MD CHEMISTRY ORDERABLES Final Resul t [facility] [phone] [facility] [address] [place] [address] * HEMOGLOBIN A1C (03/11/2025 10:17 AM CDT) ABSTRACTED HGB A1C 5.6 % [facility] Blood us Abstract Provider CHEMISTRY ORDERABLES Edited Re anupt - Final Performing Organization Address City/[facility]/ZIP Co de Phone Number [facility] CLIA# [id number] [address] [place] [address] * (ABNORMAL) LIPID PANEL (02/12/2025 12:41 PM CDT) CHOLESTEROL 149 <200 mg/dL [facility] HDL 51 > OR = 40 mg/dL [facility] TRIGLYCERIDE 153(H) <150 mg/dL [facility] LDL CALCULATED 74 mg/dL (calc) [facility] Comment: Reference range: <100 Desirable range <100 mg/dL for primary prevention; <70 mg/dL for patients with CHD or diabetic patients with > or = 2 CHD risk factors. LDL-C is now calculated using the Florencio-Sunita calculation, which is a validated novel method providing better accuracy than the Friedewald equation in the estimation of LDL-C. Florencio SS et al. LONNY. 2013;310(19): 1951-3066 (http://education.DossierView/faq/RKO875) CHOL/HDL RATIO 2.9 <5.0 (calc) [facility] NON-HDL CHOLESTEROL 98 <130 mg/dL (calc) [facility] Comment: For patients with diabetes plus 1 major ASCVD risk factor, treating to a non-HDL-C goal of <100 mg/dL (LDL-C of <70 mg/dL) is considered a therapeutic option. Test Performed at: [facility] [address] [place] [address] [address] Juliana Cadet MD Blood 02/12/2025 12:4 1 PM CDT 02/12/2025 12:42 PM CDT us So [employer]ine LEATHER GRADER CHEMISTRY ORDERABLES Final Re alfredo Performing Organization Address City/[facility]/ZIP Co de Phone Number [facility] [phone] [facility] [address] [place] [address] * COLONOSCOPY REPORT (04/01/2024 2:10 PM CDT) Narrative Procedure Note Prashanth Tan MD - 04/01/2024 2:10 PM CDT [facility] Endoscopy Patient Name: Gagandeep Ku Procedure Date: 04/01/2024 Date of : 1955 Attending MD: Prashanth Tan MD, Procedure: Colonoscopy Indications: Screening in patient at increased risk: Family history of 1st-degree relative with colorectal cancer before age 60 years Patient Profile: Refer to note in patient chart for documentation of history and physical. Providers: Prashanth Tan MD Referring MD: Bonnie Yeh MD Medicines: Monitored Anesthesia Care Complications: No immediate complications. Procedure: Pre-Anesthesia Assessment: - Prior to the procedure, a History and Physical was performed, and patient medications, allergies and sensitivities were reviewed. The patient's tolerance of previous anesthesia was reviewed. - The risks and benefits of the procedure and the sedation options and risks were discussed with the patient. All questions were answered and informed consent was obtained. - ASA and MP per anesthesia records. See the other procedure note for documentation of the pre-procedure assessment Informed consent was obtained for the procedure, including moderate sedation after risks were discussed. Based on the pre-procedure assessment, including review of the patient's medical history, medications, allergies, and review of systems, the patient was deemed to be an appropriate candidate for sedation. A timeout was performed. Continuous ECG monitoring, pulse oximetry, blood pressure monitoring, and direct observation were performed. The Colonoscope was introduced through the anus and advanced to the cecum, identified by appendiceal orifice and ileocecal valve. The colonoscopy was performed without difficulty. The patient tolerated the procedure well. The quality of the bowel preparation was evaluated using the BBPS ([place] Bowel Preparation Scale) with scores of: Right Colon = 3, Transverse Colon = 3 and Left Colon = 3 (entire mucosa seen well with no residual staining, small fragments of stool or opaque liquid). The total BBPS score equals 9. Findings: The perianal and digital rectal examinations were normal. A 12 mm polyp was found in the rectum. The polyp was sessile. The polyp was removed with a cold snare. Resection and retrieval were complete. For hemostasis, four hemostatic clips were successfully placed (MR conditional). Clip chicken stuffer: MainOne. Bleeding had stopped at the end of the procedure. Many medium-mouthed diverticula were found in the sigmoid colon and descending colon. There was no evidence of diverticular bleeding. Non-bleeding external hemorrhoids were found during retroflexion. The hemorrhoids were small. Impression: - One 12 mm polyp in the rectum, removed with a cold snare. Resected and retrieved. Clips (MR conditional) were placed. Clip chicken stuffer: [place] Aliveshoes. - Diverticulosis in the sigmoid colon and in the descending colon. There was no evidence of diverticular bleeding. - Non-bleeding external hemorrhoids. Recommendation: - No aspirin, ibuprofen, naproxen, or other non-steroidal anti-inflammatory drugs for 1 week after polyp removal. - Await pathology results. - Repeat colonoscopy in 3 years for surveillance based on pathology results. - High fiber diet. - Return to primary care physician as previously scheduled. - The findings and recommendations were discussed with the patient. - Discharge patient to home (with escort). Procedure Code(s): --- Professional --- 60580, Colonoscopy, flexible; with removal of tumor(s), polyp(s), or other lesion(s) by snare technique CPT copyright 2020 [employer]. All rights reserved. The codes documented in this report are preliminary and upon plodder operator review may be revised to meet current compliance requirements. Attending Participation: I personally performed the entire procedure. Prashanth Tan MD 04/01/2024 2:09:45 PM This report has been signed electronically. Number of Addenda: [phone] [id number], [place] [address] Prashanth Tan MD GI PROCEDURE ORDERABLES Final Result * MICROALBUMIN/CREATININE RATIO, RANDOM UR (01/15/2024 3:12 PM FINANCIAL QUANTITATIVE ANALYST) Creatinine, Urine 103 20 - 320 mg/dL [facility] MICROALBUMIN, URINE 0.5 See Note: mg/dL [facility] Comment: Reference Range: Reference Range Not established MICROALBUMIN/CREAT RATIO, UR 5 <30 mcg/mg creat [facility] Comment: The ADA defines abnormalities in albumin excretion as follows: Albuminuria Category Result (mcg/mg creatinine) Normal to Mildly increased <30 Moderately increased 30-299 Severely increased > OR = 300 The ADA recommends that at least two of three specimens collected within a 3-6 month period be abnormal before considering a patient to be within a diagnostic category. FASTING:YES FASTING: YES Test Performed at: [facility] [address], [place] [address] Juliana Cadet MD Urine URINE SPECIMEN OBTAINED BY CLEAN CATCH PROCEDURE / Unknown 01/15/2024 3:12 PM FINANCIAL QUANTITATIVE ANALYST 01/15/2024 3:12 PM FINANCIAL QUANTITATIVE ANALYST Bonnie Yeh MD URINE ORDERABLES Final Result [facility] [phone] [facility] [address] [place], [place] [address] from Last 3 Months or Most Recently Relevant to Health Maintenance [place] [id number] RX MEDIMPACT Member Subscriber Plan / Payer (Ef fective 2020-Present) Name:Gagandeep Ku Relation to Subscriber:Self Name:Gagandeep Ku Payer ID:Not on file Group ID:[id number] Type:RX Medicare Part D Address: [address] Advance Directives For more information, please contact: [phone] * NO CPR (In Event of Cardiopulmonary Arrest) (Latest Code Status on File) Date Activated Date Inactivated Comments 02/14/2025 8:23 AM 02/20/2025 7:03 PM Question Answer Comments Mechanical Ventilation (for respiratory distress) - Invasive (i.e. intubation): No Mechanical Ventilation (for respiratory distress) - Non-Invasive (i.e. BiPAP, CPAP): Yes * Full Code Date Activated Date Inactivated Comments 01/15/2024 2:38 PM 04/01/2024 12:20 PM * Full Code Date Activated Date Inactivated Comments 08/16/2022 6:22 AM 08/16/2022 1:48 PM Care Teams Mastic Sprayer Relationship Specialty Start Date End Date Bonnie Yeh MD PCP - General Internal Medicine 05/07/19
[2025-09-09] MEDS: MORPHINE SULFATE (*CRX) 4 MG/ML INJ IV PUSH ×3 (14:26→23:23)
[2025-09-09] MEDS: PHENobarbitaL sodium (*CRX) 130 MG/ML VIAL 60 MG IV PUSH ×3 (15:23→20:03)
[2025-09-09] MEDS: diazePAM INJ (*CRX) 10 MG/2 ML SYRINGE 5 MG IV PUSH ×3 (15:59→20:03)
--- NOTE | 2025-09-09 17:25 | P.HP_ITS ---
H&P: HPI History of Present Illness Date/Time: 09/09/25 17:25 Chief Complaint: Uncontrolled agitation Narrative: Note that history was obtained by separate telephone interviews with abnormal psychology teacher and with his Laura 70-year-old gentleman with long history of Parkinson disease was declining admitted to hospice June of 2025. He required assistance with all activities of daily living including set up for feeding. He was able to feed himself after set up. He was intermittently incontinent of urine but not of stool. He was ambulatory. He was alert and able to speak and usually oriented to person place and mostly to time. His baseline PPS score was 50. Since 09/04, he became progressively agitated with multiple attempts to get out of bed without assistance. He was eating much less. He was not able to express himself as well. He was staying awake all day and night with only intermittent dozing. Attempts at sedation with Seroquel 25 mg hydrocodone 7.5 mg and Valium 2 mg were unsuccessful. He had no fevers or focal symptoms. He did have a fall on September 08. He did not hit his head. Because of his change in functional status and their inability to care for him his family wished that he be admitted for comfort care only under inpatient hospice. If he survived the admission, their hope was that he could return home. They did not desire any diagnostic evaluation or life-prolonging interventions. Dr. Bonnie Patel was his PCP. He was seeing a neurologist as well. He was admitted to [facility] in February of 2025 for increased confusion and agitation. The thought was that he was overmedicated. Medications were reduced. He was also found to have a urinary tract infection. He was treated for that. He was transferred to rehab center. He had a Solis catheter and eventually that was removed after treatment with tamsulosin. After returning home from the rehab center in late February 2025 he did well for quite a while. He was able to move about the house. He was oriented. He was continent most of the time of urine and all the time will stool. He was able to go out the with his until the him 2 months or so prior to admission. Because of difficulty feeding himself and increased coughing during feeding and afterwards he did not wish to go out to eat. Soon after that he was admitted to hospice in June of 2025. He does have a history of chronic pain addressed with Cymbalta and gabapentin prescribed by his primary care physician. Pain was in the knees and legs. He complained of tingling in his feet. Review of Systems Review of Systems: ROS unobtainable: Yes unobtainable due to medical condition [facility] Past Medical History Medical History (Updated 09/09/25 @ 18:03 by Aldo Childs MD) Benign prostatic hyperplasia with urinary incontinence Chronic pain NERY (obstructive sleep apnea) Former smoker Parkinson disease Essential hypertension Surgical History Surgical History (Updated 09/09/25 @ 18:03 by Aldo Childs MD) History of total knee arthroplasty right History of cholecystectomy Family History Family History (Updated 09/09/25 @ 18:11 by Aldo Childs MD) Mother Parkinson disease Father No problems noted. Social History Social History (Updated 09/09/25 @ 18:12 by Aldo Childs MD) Social History: Retired. Resides at home with his . Quit smoking cigarettes in 1979. Quit drinking alcohol at age 40. Never abused alcohol or recreational drugs. Code status is DNR. Spiritual care concerns: No Meds Home Medications and Allergies Home Medications ?Medication ?Instructions ?Recorded ?Confirmed ?Type amlodipine 5 mg tablet 5 mg PO DAILY 09/09/2509/09 History bupropion HCl 150 mg tablet,12 hr 150 mg PO DAILY 08/1409/09/25 History sustained-release (Wellbutrin SR) carbidopa 25 mg-levodopa 100 mg 1 tablet PO TID 09/09/25 History tablet cetirizine 10 mg capsule (All Day 10 mg PO DAILY 09/0909/09/25 History Allergy (cetirizine)) diazepam 2 mg tablet (Valium) 2 mg PO HS PRN anxiety 1 09/09/25 History diclofenac sodium 75 mg 75 mg PO BID 09/09/25 History tablet,delayed release duloxetine 60 mg capsule,delayed 60 mg PO BID 09/09/25 09/09/25 History release (Cymbalta) fluticasone propionate 50 2 spray intranasal DAILY 09/09/25 History mcg/actuation nasal spray,suspension (24 Hour Allergy Relief) gabapentin 300 mg capsule 300 mg PO TID 09/09/2509/09 History hydrocodone 7.5 mg-acetaminophen 1 tablet PO Q6-8H PRN pain 09/09/25 09/09/25 History 300 mg tablet lorazepam 1 mg tablet (Ativan) 1 mg PO Q4H PRN anxiety 09/09/25 09/09/25 History losartan 100 mg tablet 100 mg PO DAILY 09/09/25 History melatonin 5 mg capsule 5 mg PO HS 09/09/25 09/09/25 History miconazole nitrate 2 % topical 1 applic topical BID 09/09/25 History powder (Antifungal (miconazole)) polyethylene glycol 3350 17 17 g PO DAILY PRN constipa tion 09/09/25 09/09/25 History gram/dose oral powder (ClearLax) quetiapine 25 mg tablet (Seroquel) 25 mg PO HS 5 09/09/25 History tamsulosin 0.4 mg capsule (Flomax) 0.4 mg PO DAILY 09/09/25 History Allergies Allergy/AdvReac Type Severity Reaction Status Date / Time Apacxsb-CSI-BxB Reductase Allergy Unknown Unknown Verified 09/09/25 14:50 Inhibitor Vital Signs Vital Signs - 24 hr 09/09/25 12:35 09/09/25 15:07 Temperature 98.1 F Pulse Rate 87 Respiratory Rate 22 H Blood Pressure 136/72 Pulse Oximetry 97 Oxygen Delivery Room Air Exam Narrative: HEENT: Sclerae nonicteric, pharyngeal mucosa pink and intact NECK: No JVD CHEST: Clear to auscultation, normal effort HEART: NL S1/S2, regular, no murmur ABDOMEN: BS+, soft, nontender, no mass, no bruits EXTREMITIES: No cyanosis, edema, or clubbing NEUROLOGIC: CN symmetric to inspection, increased tone, diffuse waxing and waning coarse tremors MUSCULOSKELETAL: No deformity to visual inspection PSYCH: Drowsy, arouses briefly with start and tremors to verbal or tactile stimuli, does not follow commands, nonverbal Assessment and Plan Assessment and plan (1) Hospice care: Code(s): Z51.5 - Encounter for palliative care Status: Acute Assessment and Plan: * Meets inpatient hospice criteria due to requiring scheduled IV medication for control of agitation and anxiety: Phenobarbital 60 mg IV q 6 hr * P.r.n. palliative regimen ordered * Hold dopaminergic medications due to hallucination and agitation * 09/09/2025 Discussed care and prognosis with spouse by telephone, including the possibility of his requiring continues IV medication for symptom control, the possibility that he may prior to discharge, and the possibility that a reversible conditions such as infection might be contributing to his symptoms (2) Parkinson disease: Code(s): G20.A1 - Parkinson's disease without dyskinesia, without mention of fluctuations Status: Acute (3) Essential hypertension: Code(s): I10 - Essential (primary) hypertension Status: Acute (4) NERY (obstructive sleep apnea): Code(s): G47.33 - Obstructive sleep apnea (adult) (pediatric) Status: Acute (5) Chronic pain: Code(s): G89.29 - Other chronic pain Status: Acute (6) Benign prostatic hyperplasia with urinary incontinence: Code(s): N40.1 - Benign prostatic hyperplasia with lower urinary tract symptoms; R32 - Unspecified urinary incontinence Status: Acute
[2025-09-09 20:00] VITALS: BP 131/95; PULSE 94; RESP 28; TEMP 37.4; O2SAT 94; O2SAT 96
[2025-09-09] MEDS: diazePAM INJ (*CRX) 10 MG/2 ML SYRINGE IM (22:51)
[2025-09-10] MEDS: GLYCOPYRROLATE INJ (*SP) 0.2 MG/ML VIAL 0.4 MG IV PUSH ×3 (01:02→18:25)
[2025-09-10] MEDS: MORPHINE SULFATE (*CRX) 4 MG/ML INJ 8 MG IV PUSH ×5 (01:07→16:20)
[2025-09-10] MEDS: PHENobarbitaL sodium (*CRX) 130 MG/ML VIAL 60 MG IV PUSH ×4 (02:00→20:20)
[2025-09-10] MEDS: diazePAM INJ (*CRX) 10 MG/2 ML SYRINGE IV PUSH ×6 (02:15→22:37)
[2025-09-10 07:40] VITALS: BP 120/78; PULSE 87; RESP 18; TEMP 36.2; O2SAT 94
--- OUTSIDE RECORDS SUMMARY | 2025-09-10 09:38 | XMS_ITS | Encounter Summary ---
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 Gender Identity Not on file Sexual Orientation [...] 80.0 - 98.0 fL 03/08/2025 7:04 PM [facility] MCH 29.6 26.7 - 33.6 pg 03/08/2025 7:04 PM [facility] MCHC 30.5(L) 31.7 - 36.3 g/dL 03/08/2025 7:04 PM [facility] RDW-CV 14.4 11.3 - 14.8 % 03/08/2025 7:04 PM [facility] Platelet Count 260 150 - 420 x10E9/L 03/08/2025 7:04 PM [facility] MPV 10.2 7.8 - 11.4 fL 03/08/2025 7:04 PM [facility] Neutrophil % 79.8(H) 41.0 - 74.0 % 03/08/2025 7:04 PM [facility] Lymphocyte % 7.5(L) 17.0 - 47.0 % 03/08/2025 7:04 PM [facility] Monocyte % 6.0 3.0 - 11.0 % 03/08/2025 7:04 PM [facility] Eosinophil % 2.0 0.0 - 7.0 % 03/08/2025 7:04 PM [facility] Basophil % 0.4 0.0 - 1.6 % 03/08/2025 7:04 PM [facility] Immature Granulocytes % 4.3(H) 0.0 - 1.0 % 03/08/2025 7:04 PM [facility] Neutrophil Absolute 9.18(H) 1.60 - 7.50 x10E9/L 03/08/2025 7:04 PM [facility] Lymphocyte Absolute 0.86(L) 1.00 - 4.40 x10E9/L 03/08/2025 7:04 PM [facility] Monocyte Absolute 0.69 0.15 - 1.00 x10E9/L 03/08/2025 7:04 PM [facility] Eosinophil Absolute 0.23 0.00 - 0.60 x10E9/L 03/08/2025 7:04 PM [facility] Basophil Absolute 0.05 0.00 - 0.13 x10E9/L 03/08/2025 7:04 PM CDT [facility] Blood BLOOD SPECIMEN / Unknown Venipuncture / Unknown 03/08/2025 3:35 PM CDT 03/08/2025 6:57 PM CDT us Provider Unknown LAB - HEMATOLOGY ORDERABLES Fin al Result Performing Organization Address City/State/[facility] Co de Phone Number [facility] [address] [place], [place] [id number] * (ABNORMAL) BASIC METABOLIC PANEL (CALCIUM TOTAL) (03/08/2025 3:35 PM CDT) Glucose 111(H) 70 - 99 mg/dL 03/08/2025 7:15 PM CDT [facility] Sodium 138 136 - 145 mmol/L 03/08/2025 7:15 PM CDT [facility] Potassium 4.2 3.5 - 5.1 mmol/L 03/08/2025 7:15 PM CDT [facility] Chloride 108(H) 98 - 107 mmol/L 03/08/2025 7:15 PM CDT [facility] CO2 20(L) 22 - 29 mmol/L 03/08/2025 7:15 PM CDT [facility] Calcium 8.8 8.4 - 10.4 mg/dL 03/08/2025 7:15 PM CDT [facility] Anion Gap 10 6 - 16 mmol/L 03/08/2025 7:15 PM CDT [facility] BUN 35(H) 7 - 26 mg/dL 03/08/2025 7:15 PM CDT [facility] Creatinine 2.41(H) 0.72 - 1.25 mg/dL 03/08/2025 7:15 PM CDT [facility] eGFR by CKD-EPI 28(L) >=90 mL/min/1.7 3 m2 03/08/2025 7:15 PM CDT [facility] Blood BLOOD SPECIMEN / Unknown Venipuncture / Unknown 03/08/2025 3:35 PM CDT 03/08/2025 6:57 PM CDT us Provider Unknown LAB - CHEMISTRY ORDERABLES Leisa l Result [facility] [address] [place] [address] documented in this encounter Visit Diagnoses Not on filedocumented in this encounter
--- OUTSIDE RECORDS SUMMARY | 2025-09-10 09:38 | XMS_ITS | Clinical Summary ---
Author Organization [employer] [facility] Address [address] [place] [address] Care Team Providers Care Pest Control Chemical Technician Name Role Phone Bonnie Yeh MD Primary Care Provider [phone] Allergies Active Allergy Reactions Criticality Noted Date Comments Ibrnayq-Taz-Owz Reductase Inhibitors Muscle Pain Low 12/11/2019 Medications cetirizine (ZyrTEC) 10 mg tablet Take 10 mg by mouth daily. Active aspirin (ECOTRIN EC) 81 mg Tablet, Delayed Release (E.C.) Take 81 mg by mouth daily. Active multivitamin (DAILY-JANNETTE) tablet Take 1 Tablet by mouth daily. 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 [...] Data STL ABSTRACTION Provider, Abstract 07/17/2025 Telephone [facility] [id number] [place] [address] [address] [place] [address] Jeffery Sevilla MD insurance clarification- gel injection 07/15/2025 External Device Data STL ABSTRACTION Provider, Abstract 07/11/2025 Patient Outreach [facility] Outpatient Care [facility] [address] [place] [address] Rama Dumont, MILITARY AIRCRAFT DESIGNER Ambulatory Social Work 07/09/2025 Patient Outreach [facility] Outpatient Care [facility] [address] [place] [address] Rama Dumont, MILITARY AIRCRAFT DESIGNER Ambulatory Social Work 06/30/2025 11:15 AM CDT Office Visit [facility] [address] [address] [place] [address] Jeffery Sevilla MD Arthritis of left knee (Primary Dx) 06/30/2025 Chart Note [facility] [address] [facility] [address] [place] [address] Jeffery Sevilla MD 06/26/2025 Telephone [facility] [address] [place] [address] Bonnie Yeh MD Provider Call 06/24/2025 Refill [facility] [address] [place] [address] Bonnie Yeh MD 06/23/2025 Telephone [facility] [address] [place] [address] Bonnie Yeh MD Medication Refill 06/20/2025 [facility] [address] [place] [address] Bonnie Yeh MD Medication Assistance 06/20/2025 [facility] [address] [place] [address] Bonnie Yeh MD Needs Orders Written 06/20/2025 [facility] [address] [place] [address] Bonnie Yeh MD Medication Review 06/19/2025 Patient Outreach [facility] Outpatient [facility] [place] [address] [place] [address] Rama Dumont, [facility] Ambulatory Social Work 06/19/2025 [facility] [address] [place] [address] Merced Bhat, Referral 06/19/2025 Refill [facility] [address] [place] [address] Edyta Roque MD Muscle spasm 06/18/2025 [facility] [address] [place] [address] Bonnie Yeh MD Needs Orders Written 06/17/2025 External Device Data STL ABSTRACTION Provider, Abstract 06/16/2025 9:00 AM CDT Office Visit [facility] [address] [place] [address] Bonnie Yeh MD Urine discoloration (Primary Dx); Type 2 diabetes mellitus with diabetic polyneuropathy, without long-term current use of insulin ([facility]); Frail elderly; Stasis dermatitis of both legs; Localized swelling of both lower extremities; Morbid obesity with BMI of 40.0-44.9, adult ([facility]); Parkinson's disease with dyskinesia and fluctuating manifestations ([facility]); Insomnia due to medical condition; Hallucinations, unspecified; Arthritis of knee, left; Uses walker 06/16/2025 Results Follow-Up [facility] [address] [place] [address] So Devine NP POC URINALYSIS DIPSTICK AUTOMATED 06/12/2025 Telephone [facility] [address] [place] [address] Bonnie Yeh MD Patient Communication 06/11/2025 1:19 PM CDT - 06/11/2025 11:59 PM CDT Hospital Encounter [facility] [place] [address] [place] [address] Bonnie Yeh MD Discharge Disposition: Home or Self Care from Last 3 Months Immunizations Immunization Administration Dates Next Due (ADACEL/BOOSTRIX)(10 YR UP) TDAP VACCINE, 0.5ML, IM 10/12/2023 (PFIZER)(12 YR UP) COVID-19 VACCINE - EMERGENCY USE AUTHORIZATION, MRNA, [id number](PF) 30 MCG/0.3 ML IM SUSP 09/09/2021,01/22/2021,01/01/2021 (PNEUMOVAX 23)(50 YRS UP) PN EUMOCOCCAL POLYSACCHARIDE (PPV23) 0.5 ML, IM 10/01/2020 (PREVNAR 13)(6 WKS UP) PNEUM OCOCCAL CONJUGATE (PCV13) 0.5 ML, IM 09/03/2019 (PREVNAR 20)(6 WKS UP) PNEUM OCOCCAL CONJUGATE VACCINE 20-VALENT (PCV20), POLYSACCHARIDE [id number] CONJUGATE, ADJUVANT 0.5 ML (PF) IM 10/11/2022 [...] st Contact Info) Description 10/07/2025 1:00 PM EXECUTIVE ACCOUNT MANAGER Office Visit [facility] [address] [place] [address] Bonnie Yeh MD [address] [place] [address] 12/29/2025 10:20 AM EXECUTIVE ACCOUNT MANAGER Office Visit [facility] [address] [place] [address] Bonnie Yeh MD [address] [place] [address] Health Maintenance Due Date Last [...] history exists Medical Devices Implanted Type Area Administrative Assistant Front Desk Device Identifier Shelf Expiration Date Model / Serial / Lot Clip Ti Med/Lg 3200 - Csc - [id number] Implanted:Qty: 2 on 08/16/2022 by Cj Gambino MD at [facility] Clip N/A: Abdomen TELEFLEX- WECK CLOSURE SYS 05/16/2027 [id number] / / [id number] Clip Endo Resolution 360 Ultra 2.8mm 235cm [id number] - [id number] Implanted:Qty: 4 on 04/01/2024 by Prashanth Tan MD at [facility] N/A: Perianal [employer] DILIA [id number] 12/08/2026 [id number] / / [id number] Procedures Procedure Name Priority Date/Time Associated Diagnosis [...] RATIO, RANDOM UR Routine 01/15/2024 3:12 PM EXECUTIVE ACCOUNT MANAGER Type 2 diabetes mellitus with diabetic polyneuropathy, without long-term current use of insulin ([facility]) from Last 3 Months or Most Recently Relevant to Health Maintenance Results * (ABNORMAL) POC URINALYSIS DIPSTICK AUTOMATED (06/16/2025 9:07 AM CDT) COLOR UA POC Dark Yellow Pale to Dark Yellow [facility] CLARITY UA POC Cloudy(A) Clear, Other [facility] GLUCOSE UA POC Negative Negative, Normal [facility] BILIRUBIN UA POC Negative Negative [facility] KETONES UA POC Negative Negative [facility] SPECIFIC GRAVITY UA POC 1.020 1.000 - 1.030 [facility] BLOOD UA POC Negative Negative [facility] PH UA POC 6.0 5.0 - 8.0 [facility] PROTEIN UA POC Negative Negative [facility] UROBILINOGEN UA POC 1.0 <2.0 mg/dL [facility] NITRITE UA POC Negative Negative [facility] LEUKOCYTE ESTERASE UA POC Negative Negative [facility] KIT LOT NUMBER POC [phone] [facility] KIT EXP DATE POC [phone] [facility] Urine 06/16/2025 9:07 AM CDT Bonnie Yeh MD POINT OF CARE TESTING Final Resu lt [facility] CLIA# [id number] [address] [place] [address] * US VENOUS DOPPLER LEG BILATERAL (06/11/2025 2:05 PM CDT) Anatomical Region Laterality Modality Lower Extremity Ultrasound 06/11/2025 1:28 PM CDT Narrative 06/11/2025 5:10 PM CDT [place] [address] [place] [address] [email or web address] Venous Exam Complete Lower Extremity Duplex Patient: Gagandeep Ku Study ID: [id number] Gender: M : 1955 Age: 70 Race: CAU Height Study Date: 06/11/2025 Weight: Access. #: [id number] *Referring Physician:* Bonnie Yeh Nancy P *Ordering Physician:* Bonnie Yeh *Pipe Machine Operator:* Olive Guillaume History: Swelling of both lower [...] in mm Prepared and Electronically Authenticated Jonh Deulca [id number]:10:48 Procedure Note Jonh Deluca MD - 06/11/[address] [place] [address] [email or web address] Venous Exam Complete Lower Extremity Duplex Patient: Gagandeep Ku Study ID: [id number] Gender: M : 1955 Age: 70 Race: CAU Height Study Date: 06/11/2025 Weight: Access. #: [id number] *Referring Physician:Bonnie Perea Nancy P *Ordering Physician:* Bonnie YehPipe Machine Operator:Olive Blackwell History: Swelling of both lower extremities. [...] mm Prepared and Electronically Authenticated Jonh Deluca [id number]:10:48 Bonnie Yeh MD US ORDERABLES Final Result [...] Comment: FASTING:NO FASTING: NO Test Performed at: [facility] [address] [place] [address] Juliana Cadet MD Blood 06/05/2025 1:07 PM CDT 06/05/2025 1:08 PM CDT Bonnie Yeh MD CHEMISTRY ORDERABLES Final Resul t [facility] [phone] [facility] [address] [facility] [place] [address] * HEMOGLOBIN A1C (03/11/2025 10:17 AM CDT) ABSTRACTED HGB A1C 5.6 % [facility] Blood us Abstract Provider CHEMISTRY ORDERABLES Edited Re anupt - Final Performing Organization Address City/[facility]/ZIP Co de Phone Number [facility] CLIA# [id number] [address] [place] [address] * (ABNORMAL) LIPID PANEL (02/12/2025 12:41 PM [...] LDL-C. Florencio SS et al. LONNY. 2013;310(19): 3181-7656 (http://education.[employer]/faq/HEQ965) CHOL/HDL RATIO 2.9 <5.0 (calc) [facility] NON-HDL CHOLESTEROL 98 <130 mg/dL (calc) [facility] Comment: For patients with diabetes plus 1 major ASCVD risk factor, treating to a non-HDL-C goal of <100 mg/dL (LDL-C of <70 mg/dL) is considered a therapeutic option. Test Performed at: [facility] [address] [place] [address] Juliana Cadet MD Blood 02/12/2025 12:4 1 PM CDT 02/12/2025 12:42 PM CDT us So Devine SHEAR ASSEMBLER CHEMISTRY ORDERABLES Final Re alfredo Performing Organization Address City/[facility]/ZIP Co de Phone Number [facility] [phone] [facility] [address] [place] [address] * COLONOSCOPY REPORT (04/01/2024 2:10 PM CDT) Narrative Procedure Note Prashanth Tan MD - 04/01/2024 2:10 PM CDT [facility] Patient Name: Gagandeep Ku Procedure Date: [...] bowel preparation was evaluated using the BBPS ([place] Bowel Preparation Scale) with scores of: Right [...] clips were successfully placed (MR conditional). Clip automobile technician: Greendizer. Bleeding had stopped at the end of the procedure. Many medium-mouthed diverticula were found in the sigmoid colon and descending colon. There was no evidence of diverticular bleeding. Non-bleeding external hemorrhoids were found during retroflexion. The hemorrhoids were small. Impression: - One 12 mm polyp in the rectum, removed with a cold snare. Resected and retrieved. Clips (MR conditional) were placed. Clip automobile technician: [place] [employer]. - Diverticulosis in the sigmoid colon and [...] (with escort). Procedure Code(s): --- Professional --- 07280, Colonoscopy, flexible; with removal of tumor(s), polyp(s), or other lesion(s) by snare technique CPT copyright 2020 [employer]. All rights reserved. The codes documented in this report are preliminary and upon spanner operator review may be revised to meet current compliance requirements. Attending Participation: I personally performed the entire procedure. Prashanth Tan MD 04/01/2024 2:09:45 PM This report has been signed electronically. Number of Addenda: [id number], [place] [address] Prashanth Tan MD GI PROCEDURE ORDERABLES Final Result * MICROALBUMIN/CREATININE RATIO, RANDOM UR (01/15/2024 3:12 PM EXECUTIVE ACCOUNT MANAGER) Creatinine, Urine 103 20 - 320 mg/dL [facility] MICROALBUMIN, URINE 0.5 See Note: mg/dL [facility] Comment: Reference Range: Reference Range Not [...] category. FASTING:YES FASTING: YES Test Performed at: [facility] [address], [place] [address] Juliana Cadet MD Urine URINE SPECIMEN OBTAINED BY CLEAN CATCH PROCEDURE / Unknown 01/15/2024 3:12 PM EXECUTIVE ACCOUNT MANAGER 01/15/2024 3:12 PM EXECUTIVE ACCOUNT MANAGER Bonnie Yeh MD URINE ORDERABLES Final Result [facility] [phone] [facility] [address], [place] [address] from Last 3 Months or Most Recently Relevant to Health Maintenance Insurance [facility] [place] [id number] RX MEDIMPACT Member Subscriber Plan / Payer (Ef fective 2020-Present) Name:Gagandeep Ku Relation to Subscriber:Self Name:Gagandeep Ku Payer ID:Not on file Group ID:[id number] Type:RX Medicare Part D Address: [address] Advance Directives For more information, please contact: [phone] * NO CPR (In Event of Cardiopulmonary [...] 6:22 AM 08/16/2022 1:48 PM Care Teams Pest Control Chemical Technician Relationship Specialty Start Date End Date Bonnie eYh MD PCP - General Internal Medicine 05/07/19
--- OUTSIDE RECORDS SUMMARY | 2025-09-10 09:38 | XMS_ITS | Clinical Summary ---
Author Organization [facility] Address [address] [place] [address] Care Team Providers Care Financial Recording Clerk Name Role Phone Unavailable Primary Care Provider Unavailabl e Source Comments [facility],non-owned Affiliates and Associated Physician Practices is amultiple site organization consisting of ambulatory clinics and hospital sitesin [place], [place], [place] and [place]. This disclosure is being madepursuant to the Care Everywhere program and may not contain all information available regarding this patient. Last updated 18.[facility] Active Problems Problem Noted Date Diagnosed Date NERY on CPAP 04/06/2023 Social History Tobacco Use Types Packs/Day Years Used Date Smoking Tobacco: Never Assessed Sex and Gender Information Value Date Recorded Sex Assigned at Not on file Legal Sex Male 12:07 PM SALES OPERATIONS COORDINATOR Gender Identity Not on file Sexual Orientation [...] age to complete this topic Insurance [facility] Care Address: [facility] [address] [place] [address]
--- OUTSIDE RECORDS SUMMARY | 2025-09-10 09:38 | XMS_ITS | Clinical Summary ---
Author Organization [facility] Address [address] [place] [address] Care Team Providers Care Client Finance Analyst Name Role Phone Bonnie Yeh MD Primary [...] mg by mouth daily 12/03/19 23 Active ysaggandjqmw-croz-mm lic acid (Centrum) 18-400 mg-mcg tablet Take [...] (11/24/2022): Added automatically from request for surgery [id number] Surgical History Surgery Date Site/Laterality Comments CHOLECYSTECTOMY [...] on file Legal Sex Male 9:22 PM GUIDANCE AND CONTROL SYSTEM ENGINEER Gender Identity Not on file Sexual Orientation Not on file Obstetrics History Last Filed Vital Signs Vital Sign Reading Time Taken Comments Blood Pressure 123/60 12/27/2022 9:35 AM GUIDANCE AND CONTROL SYSTEM ENGINEER Pulse 64 12/27/2022 9:35 AM GUIDANCE AND CONTROL SYSTEM ENGINEER Temperature 36.4 C (97.5 F) 12/27/2022 9:02 AM GUIDANCE AND CONTROL SYSTEM ENGINEER Respiratory Rate 25 12/27/2022 9:3 5 AM GUIDANCE AND CONTROL SYSTEM ENGINEER Oxygen Saturation 94% 12/27/2022 9:35 AM GUIDANCE AND CONTROL SYSTEM ENGINEER Inhaled Oxygen Concentration - - Weight 144.6 kg (318 lb 12.6 oz) 12/27/2022 6:58 AM GUIDANCE AND CONTROL SYSTEM ENGINEER Height 177.8 cm (5' 10) 12/27/2022 6:58 AM GUIDANCE AND CONTROL SYSTEM ENGINEER Body Mass Index 45.74 12/27/2022 6:58 AM GUIDANCE AND CONTROL SYSTEM ENGINEER Plan of Treatment Health Maintenance Due Date [...] Pneumococcal vaccine 65+ Completed 10/01/2020, 08/14 Insurance [facility] Care Teams Client Finance Analyst Relationship Specialty Start Date End Date Bonnie Yeh MD [address] [place] [address] PCP - General Pediatrics 12/26/22
[2025-09-10] MEDS: MORPHINE SULFATE (*CRX) 4 MG/ML INJ IV PUSH (13:00)
[2025-09-10 14:15] VITALS: RESP 24
[2025-09-10] MEDS: MORPHINE SULFATE INJ (*CRX) 50 MG in SODIUM CHLORIDE 0.9% IV 95 ML IV CONT (14:15)
--- NOTE | 2025-09-10 16:33 | P.PNIM_ITS ---
Progress Note: A&P Assessment and Plan (1) Hospice care: Code(s): Z51.5 - Encounter for palliative care Status: Acute Assessment and Plan: * Meets inpatient hospice criteria due to requiring scheduled IV medication for control of agitation and anxiety: Phenobarbital 60 mg IV q 6 hr * P.r.n. palliative regimen ordered * Hold dopaminergic medications due to hallucination and agitation * 09/09/2025 Discussed care and prognosis with spouse by telephone, including the possibility of his requiring continues IV medication for symptom control, the possibility that he may prior to discharge, and the possibility that a reversible conditions such as infection might be contributing to his symptoms * 09/10/2025 Required addition of morphine drip at 2 mg/hr and diazepam 10 mg iv q 8 hr in addition to phenobarbital 60 mg iv q 6 hr, seems to be declining rapidly with decreased responsiveness and requirement for escalating medication doses (2) Parkinson disease: Code(s): G20.A1 - Parkinson's disease without dyskinesia, without mention of fluctuations Status: Acute (3) Essential hypertension: Code(s): I10 - Essential (primary) hypertension Status: Acute (4) NERY (obstructive sleep apnea): Code(s): G47.33 - Obstructive sleep apnea (adult) (pediatric) Status: Acute (5) Chronic pain: Code(s): G89.29 - Other chronic pain Status: Acute (6) Benign prostatic hyperplasia with urinary incontinence: Code(s): N40.1 - Benign prostatic hyperplasia with lower urinary tract symptoms; R32 - Unspecified urinary incontinence Status: Acute Subjective Date/time seen: 09/10/25 16:33 Interval history: Restless earlier today. No PO intake. No intelligible communication. Was trying to get out of bed. Better after morphine drip begun. Review of Systems Review of Systems: ROS unobtainable: Yes unobtainable due to medical condition Exam Narrative: HEENT: Pharyngeal mucosa pink and intact NECK: No JVD CHEST: Clear to auscultation, normal effort HEART: NL S1/S2, regular, no murmur ABDOMEN: BS+, soft, nontender, no mass, no bruits EXTREMITIES: No cyanosis, edema, or clubbing NEUROLOGIC: CN symmetric to inspection, increased tone, diffuse waxing and waning coarse tremors MUSCULOSKELETAL: No deformity to visual inspection PSYCH: Minimal response to verbal and tactile stimuli Objective Data Vital Signs Vital Signs: Vital Signs - 24 hr 09/09/25 20:00 09/09/25 20:00 09/10/25 07:40 Temperature 99.3 F 97.2 F L Pulse Rate 94 87 Respiratory Rate 28 H 18 Blood Pressure 131/95 H 120/78 Pulse Oximetry 94 96 94 Oxygen Delivery Nasal Cannula Oxygen Flow Rate 2 09/10/25 14:15 Temperature Pulse Rate Respiratory Rate 24 H Blood Pressure Pulse Oximetry Oxygen Delivery Oxygen Flow Rate Intake/Output Intake/Output: Intake & Output 09/07/25 09/08/25 09/09/25 09/10/25 23:59 23:59 23:59 23:59 Intake Total 100 Output Total 400 1800 Balance -400 -1700 Meds/Results Medications: Active Medications Generic Name Dose Route Start Last Admin Trade Name Freq PRN Reason Stop Dose Admin Artificial Tears 0 drop 09/09/25 13:15 Artificial Tears Ophth Soln 15 Ml Bottle EACH EYE Q12H PRN Dry Eye(s) Bisacodyl 10 mg 09/09/25 13:15 Bisacodyl 10 Mg Suppository RECTAL DAILY PRN Constipation Diazepam 10 mg 09/09/25 22:33 09/10/25 10:05 Diazepam Inj (*Crx) 10 Mg/2 Ml Syringe IV PUSH 10 mg Q4H PRN Administration RESTLESSNESS Glycopyrrolate 0.4 mg 09/09/25 13:17 09/10/25 10:10 Glycopyrrolate Inj (*Sp) 0.2 Mg/Ml Vial IV PUSH 0.4 mg Q6H PRN Administration secretions Morphine Sulfate 50 mg/ Sodium 100 mls @ 4 mls/hr 09/10/25 13:45 09/10/25 14:15 Chloride IV CONT 2 mg/hr .Q24H SHANTE 4 mls/hr 2 MG/HR Administration Morphine Sulfate 8 mg 09/10/25 00:49 09/10/25 11:53 Morphine Sulfate (*Crx) 4 Mg/Ml Inj IV PUSH 8 mg ONCE PRN Administration Pain Morphine Sulfate 8 mg 09/10/25 00:52 09/10/25 03:03 Morphine Sulfate (*Crx) 4 Mg/Ml Inj IV PUSH 8 mg Q2HR PRN Administration Pain Rated 7-10 Phenobarbital Sodium 60 mg 09/09/25 15:00 09/10/25 16:20 Phenobarbital Sodium (*Crx) 130 Mg/Ml Vial IV PUSH 60 mg Q6H SHANTE Administration Prochlorperazine Edisylate 10 mg 09/09/25 13:18 Prochlorperazine Edisylate 10 Mg/2 Ml Vial IV PUSH Q6H PRN Nausea And Vomiting
[2025-09-10] MEDS: SCOPOLAMINE 1 MG PATCH 1 PATCH TRANSDERM (18:25)
[2025-09-10 20:00] VITALS: BP 160/77; PULSE 107; RESP 22; TEMP 37.1; O2SAT 90
[2025-09-11] MEDS: GLYCOPYRROLATE INJ (*SP) 0.2 MG/ML VIAL 0.4 MG IV PUSH ×2 (00:20→06:01)
[2025-09-11] MEDS: PHENobarbitaL sodium (*CRX) 130 MG/ML VIAL 60 MG IV PUSH (02:19)
[2025-09-11] MEDS: diazePAM INJ (*CRX) 10 MG/2 ML SYRINGE IV PUSH ×2 (02:19→06:00)
--- NOTE | 2025-09-11 03:51 | PC.NURSE ---
Patient continues with comfort care, suctioning prn, oral and mouth care. Facial cleansing. Family at bedside. no further needs at this time
--- NOTE | 2025-09-11 08:26 | PC.NURSE ---
Patient at 825.
--- NOTE | 2025-09-14 07:51 | P.DN_ITS ---
Discharge Summary Date and Time Date of : 09/11/25 Time of : 08:26 Provider Pronounced By: 2 RNs Name of First RN That Pronounced: Rebekah Leach Name of Second RN That Pronounced: Jessika Maldonado Probable Cause of Probable Cause of : End-stage Parkinson disease Summary Hospital Course: 70 y/o male was admitted from hospice at home to inpatient hospice service due to uncontrolled agitation. An IV was placed and palliative mediations were titrated to achieve palliative sedation. Mr. Ku peacefully. Additional Data Confirmation of as documented by pronouncing clinician: Pupillary Reflex, Palpable Pulses, Response to Stimuli, Heart Tones and Breath Sounds Name of Provider Notified: Amadeo Time Provider Notified: 08:32 Card Lacer Jacquard Notified: Yes Date [facility] Notified of : 09/11/25 Time [facility] Notified of : 08:41
== END 2025-09-11 08:26 | disposition expired | DRG 951 ==
PROVIDERS: Admitting Provider Internal Medicine; PCP Internal Medicine Adolescent Medicine; Visit Provider Internal Medicine
DX: Z51.5 Encounter for palliative care (principal); G20.A1 Parkinson's disease without dyskinesia, without mention of fluctuations; G89.29 Other chronic pain; N40.1 Benign prostatic hyperplasia with lower urinary tract symptoms; G47.33 Obstructive sleep apnea (adult) (pediatric); I10 Essential (primary) hypertension; R32 Unspecified urinary incontinence; Z87.891 Personal history of nicotine dependence; Z66 Do not resuscitate
CPT/HCPCS: A9270; J1596; J2270; J2560; J3360